=== PATIENT | male | born 1970 | race American Indian/Alaskan Native ===

== ENCOUNTER 2019-02-21 14:32 | Inpatient (IN) | payer MEDICARE ==
--- NOTE | 2019-02-21 15:18 | ED PDOC ---
HPI: Psych/Substance Abuse Time Seen by Provider: 02/21/19 14:45 Chief Complaint (Nursing): Psychiatric Evaluation Chief Complaint (Provider): suicidal ideation History Per: Patient History/Exam Limitations: no limitations Onset/Duration Of Symptoms: Days (1 week), Gradual, Persistent Current Symptoms Are (Timing): Still Present Associated Symptoms: Suicidal Thoughts, Suicidal Plan (" by police". Would try to get shot.), Other (hearing voices) Additional Complaint(s): Recently fiance . Currently homeless. Rode on bus from [place] and arrived last night. PMD None Past Medical History Reviewed: Historical Data, Nursing Documentation, Vital Signs Vital Signs: Last Vital Signs Temp 98.0 F 02/21/19 14:37 Pulse 88 02/21/19 14:37 Resp 16 02/21/19 14:37 BP 144/70 02/21/19 14:37 Pulse Ox 98 02/21/19 14:37 Primary Care Provider: FAMILY PROVIDER,NO - Medical History PMH: Anxiety, Asthma, Back Problems (chronic back pain, herniated discs (2 years [employer])), Bipolar Disorder, Depression Denies: Diabetes, Hepatitis, HIV, HTN, Chronic Kidney Disease, Seizures, Sexually Transmitted Disease - Surgical History Surgical History: Hernia Repair - Family History Family History: States: Unknown Family Hx - Living Arrangements Living Arrangements: Other (Undomiciled) - Social History Current smoker - smoking cessation education provided: Yes Alcohol: None Drugs: Denies - Home Medications Home Medications: Ambulatory Orders Medication Instructions Recorded [place] Carbonate [[place] 02/21/19 Carbonate 300MG] QUEtiapine [SEROquel] 02/21/19 - Allergies Allergies/Adverse Reactions: Allergies Allergy/AdvReac Type Severity Reaction Status Date / Time No Known Allergies Allergy Verified 02/21/19 14:37 Review of Systems ROS Statement: Except As Marked, All Systems Reviewed And Found Negative (and as per HPI) Constitutional: Positive for: Weakness Psych: Positive for: Anxiety, Depression, Psychosis, Suicidal ideation Physical Exam - Reviewed Nursing Documentation Reviewed: Yes Vital Signs Reviewed: Yes - Physical Exam Appears: Positive for: Non-toxic, No Acute Distress (but tired appearing) Head Exam: Positive for: ATRAUMATIC, NORMOCEPHALIC Skin: Positive for: Warm, Dry Eye Exam: Positive for: EOMI, PERRL Neck: Positive for: Painless ROM, Supple Cardiovascular/Chest: Positive for: Regular Rate, Rhythm. Negative for: Murmur Respiratory: Positive for: Normal Breath Sounds. Negative for: Respiratory Distress Gastrointestinal/Abdominal: Negative for: Distended Back: Negative for: Decreased ROM Extremity: Positive for: Normal ROM. Negative for: Deformity Neurological/Psych: Positive for: Awake, Alert, Oriented, Mood/Affect (depressed mood and affect). Negative for: Motor/Sensory Deficits - Laboratory Results Result Diagrams: 02/21/19 17:22 02/21/19 17:22 - ECG ECG: Positive for: Interpreted By Me ECG Rhythm: Positive for: Sinus Rhythm, Nonspecific Changes O2 Sat by Pulse Oximetry: 98 Pulse Ox Interpretation: Normal - Radiology X-Ray: Interpreted by Me X-Ray Interpretation: No Acute Disease - Progress ED Course And Treament: 1814 Evaluated by KATHY Lazaro. Pt to be hospitalized for psychiatric stabilization. Medically stable for psych admission Disposition - Clinical Impression Clinical Impression: Bipolar disorder, Depression - Disposition Disposition Time: 18:00 Condition: STABLE - Pt Status Changed To: Hospital Disposition Of: Inpatient - Admit Certification Admit to Inpatient:: After my assessment, the patient will require hospitalization for at least two midnights. This is because of the severity of symptoms shown, intensity of services needed, and/or the medical risk in this patient being treated as an outpatient. - POA Present On Arrival: None
[2019-02-21 17:46] LABS: BASO % 0.6 % (0.0-2.0); EOS # 0.1 K/uL (0.0-0.7); EOS % 0.9 % (0.0-4.0); HEMOGLOBIN 13.9 g/dL (12.0-18.0); LYMPH # 1.3 K/uL (1.0-4.3); LYMPH % 20.4 % (20.0-40.0); MEAN CELL VOLUME 103.5 fl (80.0-94.0); MEAN CORPUSCULAR HEMOGLOBIN 34.5 pg (27.0-31.0); MEAN CORPUSCULAR HGB CONC 33.3 g/dL (33.0-37.0); MEAN PLATELET VOLUME 8.8 fl (7.2-11.7); MONO # 0.4 K/uL (0.0-0.8); MONO % 6.8 % (0.0-10.0); NEUT # 4.4 K/uL (1.8-7.0); NEUT % 71.3 % (50.0-75.0); RBC 4.02 Mil/uL (4.40-5.90); RED CELL DISTRIBUTION WIDTH 13.1 % (11.5-14.5); WHITE BLOOD COUNT 6.1 K/uL (4.8-10.8)
[2019-02-21 18:04] LABS: URINE BACTERIA RARE (<OCC); URINE BILIRUBIN NEGATIVE (NEGATIVE); URINE BLOOD NEGATIVE (NEGATIVE); URINE CLARITY CLEAR (Clear); URINE COLOR YELLOW (YELLOW); URINE GLUCOSE (UA) NEG (NEGATIVE); URINE LEUKOCYTE ESTERASE NEG Leu/uL (Negative); URINE PROTEIN NEGATIVE (NEGATIVE); URINE UROBILINOGEN 0.2-1.0 mg/dL (0.2-1.0)
[2019-02-21 18:07] LABS: ACETAMINOPHEN < 10.0 ug/ml (10.0-30.0); ALB/GLOB RATIO 1.4 (1.0-2.1); ALBUMIN 4.5 g/dL (3.5-5.0); ALT/SGPT 24 U/L (21-72); AST/SGOT 36 U/L (17-59); BLOOD UREA NITROGEN 15 mg/dl (9-20); CALCIUM 9.8 mg/dL (8.4-10.2); GFR NON-AFRICAN AMERICAN > 60; SALICYLATE < 1.0 mg/dl
[2019-02-21 18:21] LABS: BARBITURATES, UR NEGATIVE (NEGATIVE); BENZODIAZEPINES, UR NEGATIVE (NEGATIVE); OPIATES, UR NEGATIVE (NEGATIVE); PHENCYCLIDINE, UR NEGATIVE (NEGATIVE)
[2019-02-21 20:31] VITALS: O2SAT 100
[2019-02-21] MEDS ORDERED: DiphenhydrAMINE 50 mg/ml Inj IM PRN (22:26)
[2019-02-21] MEDS ORDERED: Magnesium Hydroxide Susp 30 ml UD PO PRN (22:26)
[2019-02-21] MEDS ORDERED: Alum-Mag Hydrox-Simethicone Susp (30 mL) PO PRN (22:26)
--- NOTE | 2019-02-21 22:37 | PCM.BM ---
Treatment Plan Problems - Problems identified on initial assessmt Delusions Date Initiated: 02/21/19 Time Initiated: 22:54 Assessment reference: NA Status: Active Hopelessness/Helplessness Date Initiated: 02/21/19 Time Initiated: 22:35 Assessment reference: NA Status: Active Medication nonadherence Date Initiated: 02/21/19 Time Initiated: 22:36 Assessment reference: NA Status: Active Treatment assets and liabiliti Patient Assests: cooperative, ADL independent, negotiates basic needs, cognitively intact Patient Liabilities: financial problems, poor support system, medical problems, other (homelessness) - Milieu Protocol Maintain good personal hygiene: daily Remind patient to perform daily oral care, every other day Encourage regular showers Conduct patient checks and document Observation sheet: Q15 minutes Maintain personal safety: every shift Educate patient to report safety concerns to staff, every shift Monitor environment for contraband/sharps Medication safety: Monitor for expected outcome, potential side effects: every shift, Assess barriers to learning: every shift, Assess readiness for medication education: every shift
--- NOTE | 2019-02-21 23:01 | PCM.BM ---
<XanderJacob P - Last Filed: 02/21/19 22:59> Treatment Plan Problems - Problems identified on initial assessmt Altered Sleep Patterns Assessment reference: NA Status: Active Guarded Behavior Date Initiated: 02/21/19 Time Initiated: 23:00 Assessment reference: NA Status: Active Delusions Date Initiated: 02/21/19 Time Initiated: 23:01 Assessment reference: NA <YuvalBina - Last Filed: 02/24/19 14:57> Treatment assets and liabiliti Patient Assests: adapts well, educated ( Pt. 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 ), resourceful, self- reliant, ADL independent, physically healthy, negotiates basic needs, good past tx response, financial stabiity (Pt. reports being disabled for several years and receiving SSI benefits.), cognitively intact Patient Liabilities: live alone (Pt. reports currently being homeless and identifies this as primary stressor.), poor support system (Pt. reports significant hx of traumatic losses, resulting in poor family/social supports. Pt. reports having a friend in [facility] and recently meeting a woman from [place] who has offered to house pt. upon discharge. ), medical problems (Pt. reports hx of hernia repair and chronic back pain. Please see H&P.), other (Pt. reported extensive family hx of mental illness and suicide attempts, reporting that biological parents and sister completed suicide by GSW.) Family Contact Family involvement: Famliy/SO not involved Family contact: Patient declines to allow family contact at present - Goals for Treatment Patient goals for treatment: Patient to continue stabilization on 3NP through medication management and group/supportive therapy to address sxs of depression as exhibited by poor energy/motivation, sleep disturbances, and eliminate SI. Patient to be encouraged to attend groups regularly to promote self-awareness, emotion regulation, and improve insight, compliance, coping skills and self- esteem. Patient to be provided with referral for appropriate level of aftercare to reduce risk of future hospitalizations and ensure safety in the community. Pt. identifying unstable housing as primary tx goal. With assistance from tx team and extensive psychoducation pt. was able to identify sxs of anxiety as primary problem for work. Discharge/Continuing Care - Education Needs Education Needs: Patient Medication, Patient Diagnosis/Disease Process, Patient Coping Skills, Patient Anger Management skills, Patient Community resources, Patient Aftercare Safety Plan - Discharge Discharge Criteria: Tolerates medication w/o severe side effects, Free of Suicidal thoughts, Free of agitation, Normal sleep pattern, Ability to care for self Discharge to:: [facility], Other (Pt. reports housing opportunity in [place] upon d/c.) - Treatment Team Participation Patient/Family/SO Statement: 02/23/19 15:47 Patient attended tx team this morning to discuss progress on 3NP and tx goals. Pt. presented as evasive and circumstantial. Pt. disorganized and tangential at times, requiring frequent redirection/refocusing to provide relevant collateral information. Pt. denied significant improvement in sxs since admission but reported feeling play today. Pt. reported feeling relief today after getting in touch with a woman (Trudy) who he met on a bus prior to admission and being told he will be allowed to reside with her in [place] upon discharge. Pt. reported ongoing passive SI without plan or intent and was able to contract for safety on 3NP. Staff availability emphasized. Pt. providing conflicting collateral regarding family losses, family relations, psychiatric hx. Pt. perseverating on housing and refusal to stay in a retirement if not allowed to stay with Trudy ([place]) or friend (resides in [facility]). Extensive psychoeducation regarding recommended medication changes provided. Pt. agreeable. Pt. superficially pleasant and superficially motivated for tx. Pt. informed that since he will be leaving the state upon discharge, aftercare cannot be secured by fiction and nonfiction writer prose. Grease Packer emphasized importance of pt. seeking appropriate outpatient mental health services upon relocation. Pt. expressed understanding of the above. Discussed with Family/SO: No Was Patient/Family/SO present at Treatment Team Meeting: Yes <Gino Roman - Last Filed: 02/25/19 12:21> Treatment Plan Problems - Problems identified on initial assessmt Altered Sleep Patterns Date Initiated: 02/21/19 Time Initiated: 22:35 Assessment reference: NA Status: Active Guarded Behavior Date Initiated: 02/21/19 Time Initiated: 23:00 Assessment reference: NA Status: Active Delusions Date Initiated: 02/21/19 Time Initiated: 23:01 Assessment reference: NA - Diagnosis (1) Bipolar disorder Status: Acute Interventions: 02/25/19 12:20 start lithium
--- NOTE | 2019-02-22 09:05 | CP.PCM.CON ---
<Efrem Juarez - Last Filed: 02/22/19 10:09> History of Present Illness - History of Present Illness History of Present Illness: Medicine Consult Note: HPI: 49 y/o male, with a PMHx of anxiety, depression, asthma, bipolar disorder presented to ED after 4 day long bus trip from [place]. Pt reports he is originally from [place] and came back after his fiance was killed by a drunk full service vending driver. He reports he has no will to live any longer and has exhausted all options at this point. He also reports he has no family left in the immediate area as his grandmother recently. Reports he wishes somebody would kill him (specifically police) but otherwise has no plan to do it himself. Feelings remain unchanged. No other complaints/concerns. Denies any homicidal ideation, visual/auditory hallucinations. ROS: 12 systems reviewed, negative unless otherwise mentioned in HPI PMHx: asthma, anxiety, depression, bipolar Meds: as per med rec ALL: NKDA Psurghx: left inguinal hernia repair Social: tobacco abuse, denies ETOH/drug abuse Familyhx: denies Past Patient History - Past Social History Smoking Status: Current Some Days Smoker Alcohol: None Drugs: Denies Home Situation {Lives}: Alone Domestic Violence: Negative - CARDIAC Hx Hypertension: No - PULMONARY Hx Asthma: Yes - NEUROLOGICAL Hx Seizures: No - HEENT Hx HEENT Problems: No - RENAL Hx Chronic Kidney Disease: No - ENDOCRINE/METABOLIC Hx Endocrine Disorders: No - HEMATOLOGICAL/ONCOLOGICAL Hx Human Immunodeficiency Virus (HIV): No - INTEGUMENTARY Hx Dermatological Problems: No - MUSCULOSKELETAL/RHEUMATOLOGICAL Hx Musculoskeletal Disorders: Yes (chronic back pain) Hx Herniated Disk: Yes (2 years ago) - GASTROINTESTINAL Hx Gastrointestinal Disorders: No - GENITOURINARY/GYNECOLOGICAL Hx Sexually Transmitted Disorders: No - PSYCHIATRIC Hx Substance Use: No - SURGICAL HISTORY Hx Surgeries: No - ANESTHESIA Hx Anesthesia: Yes Meds Allergies/Adverse Reactions: Allergies Allergy/AdvReac Type Severity Reaction Status Date / Time No Known Allergies Allergy Verified 02/21/19 14:37 - Medications Medications: Current Medications Acetaminophen (Tylenol 325mg Tab) 650 mg PO Q4 PRN PRN Reason: pain level 4-7 Al Hydrox/Mg Hydrox/Simethicone (Maalox Plus 30 Ml) 30 ml PO Q4 PRN PRN Reason: Dyspepsia Diphenhydramine HCl (Benadryl) 50 mg IM Q6 PRN PRN Reason: Extrapyramidal S/S Unable PO Diphenhydramine HCl (Benadryl) 50 mg PO Q6 PRN PRN Reason: Extrapyramidal Symptoms Diphenhydramine HCl (Benadryl) 50 mg PO HS PRN PRN Reason: Sleep Haloperidol (Haldol) 5 mg PO Q4 PRN PRN Reason: Agitation Haloperidol Lactate (Haldol) 5 mg IM Q4 PRN PRN Reason: Agitation, Unable to Take PO Lorazepam (Ativan) 2 mg IM Q8H PRN PRN Reason: Anxiety/Agitation,Unable PO Lorazepam (Ativan) 1 mg PO Q8H PRN PRN Reason: Anxiety/Agitation Magnesium Hydroxide (Milk Of Magnesia) 30 ml PO HS PRN PRN Reason: Constipation Physical Exam - Constitutional Appears: Well, Non-toxic, No Acute Distress - Head Exam Head Exam: ATRAUMATIC, NORMOCEPHALIC - Eye Exam Eye Exam: EOMI, PERRL - ENT Exam ENT Exam: Mucous Membranes Moist Additional comments: poor dentition, severe halitosis - Respiratory Exam Respiratory Exam: Clear to Auscultation Bilateral, NORMAL BREATHING PATTERN. absent: Rales, Rhonchi, Wheezes, Respiratory Distress - Cardiovascular Exam Cardiovascular Exam: REGULAR RHYTHM, RRR, +S1, +S2. absent: Tachycardia, Irregular Rhythm, JVD, Systolic Murmur - GI/Abdominal Exam GI & Abdominal Exam: Normal Bowel Sounds, Soft - Extremities Exam Extremities exam: Positive for: normal capillary refill, normal inspection, pedal pulses present. Negative for: calf tenderness, pedal edema, tenderness - Neurological Exam Neurological exam: Alert, CN II-XII Intact, Normal Gait, Oriented x3 - Psychiatric Exam Psychiatric exam: Depressed, Flat Affect, Suicidal Ideation Results - Vital Signs Recent Vital Signs: Last Vital Signs Temp 99.3 F 02/21/19 22:19 Pulse 74 02/21/19 23:14 Resp 17 02/21/19 23:14 BP 121/81 02/21/19 22:19 Pulse Ox 100 02/21/19 20:01 - Labs Result Diagrams: 02/21/19 17:22 02/21/19 17:22 Labs: Laboratory Results - last 24 hr 02/21/19 02/21/19 02/21/19 17:22 17:22 17:22 WBC 6.1 RBC 4.02 L Hgb 13.9 Hct 41.7 MCV 103.5 H MCH 34.5 H MCHC 33.3 RDW 13.1 Plt Count 191 D MPV 8.8 Neut % (Auto) 71.3 Lymph % (Auto) 20.4 [place] % (Auto) 6.8 Eos % (Auto) 0.9 Baso % (Auto) 0.6 Neut # (Auto) 4.4 Lymph # (Auto) 1.3 [place] # (Auto) 0.4 Eos # (Auto) 0.1 Baso # (Auto) 0.0 Sodium 136 Potassium 4.0 Chloride 104 Carbon Dioxide 25 Anion Gap 11 BUN 15 Creatinine 0.6 L Est GFR ( Amer) > 60 Est GFR (Non-Af Amer) > 60 Random Glucose 95 Calcium 9.8 Total Bilirubin 0.6 AST 36 ALT 24 Alkaline Phosphatase 50 Total Protein 7.7 Albumin 4.5 Globulin 3.2 Albumin/Globulin Ratio 1.4 Urine Color Urine Clarity Urine pH Ur Specific [place] Urine Protein Urine Glucose (UA) Urine Ketones Urine Blood Urine Nitrate Urine Bilirubin Urine Urobilinogen Ur Leukocyte Esterase Urine RBC (Auto) Urine Microscopic WBC Urine Bacteria Salicylates < 1.0 Urine Opiates Screen Urine Methadone Screen Acetaminophen < 10.0 L Ur Barbiturates Screen Ur Phencyclidine Scrn Ur Amphetamines Screen U Benzodiazepines Scrn [place] < 0.2 L U Oth Cocaine Metabols U Cannabinoids Screen Alcohol, Quantitative < 10 02/21/19 02/21/19 17:38 17:38 WBC RBC Hgb Hct MCV MCH MCHC RDW Plt Count MPV Neut % (Auto) Lymph % (Auto) [place] % (Auto) Eos % (Auto) Baso % (Auto) Neut # (Auto) Lymph # (Auto) [place] # (Auto) Eos # (Auto) Baso # (Auto) Sodium Potassium Chloride Carbon Dioxide Anion Gap BUN Creatinine Est GFR ( Amer) Est GFR (Non-Af Amer) Random Glucose Calcium Total Bilirubin AST ALT Alkaline Phosphatase Total Protein Albumin Globulin Albumin/Globulin Ratio Urine Color Yellow Urine Clarity Clear Urine pH 6.0 Ur Specific [place] 1.009 Urine Protein Negative Urine Glucose (UA) Neg Urine Ketones Negative Urine Blood Negative Urine Nitrate Negative Urine Bilirubin Negative Urine Urobilinogen 0.2-1.0 Ur Leukocyte Esterase Neg Urine RBC (Auto) 1 Urine Microscopic WBC 1 Urine Bacteria Rare Salicylates Urine Opiates Screen Negative Urine Methadone Screen Negative Acetaminophen Ur Barbiturates Screen Negative Ur Phencyclidine Scrn Negative Ur Amphetamines Screen Negative U Benzodiazepines Scrn Negative [place] U Oth Cocaine Metabols Negative U Cannabinoids Screen Negative Alcohol, Quantitative Assessment & Plan - Assessment and Plan (Free Text) Assessment: 49 y/o male with PMHx of anxiety, depression, bipolar disorder admitted to psych for suicidal ideation. Pt remains with depressed mood and unchanged suicidal tho ughts. He is afebrile and hemodynamically stable. Plan: c/w management as per psych team, will continue to follow pt as needed. <Stephen Gil - Last Filed: 02/22/19 12:02> Meds - Medications Medications: Current Medications Acetaminophen (Tylenol 325mg Tab) 650 mg PO Q4 PRN PRN Reason: pain level 4-7 Al Hydrox/Mg Hydrox/Simethicone (Maalox Plus 30 Ml) 30 ml PO Q4 PRN PRN Reason: Dyspepsia Diphenhydramine HCl (Benadryl) 50 mg IM Q6 PRN PRN Reason: Extrapyramidal S/S Unable PO Diphenhydramine HCl (Benadryl) 50 mg PO Q6 PRN PRN Reason: Extrapyramidal Symptoms Diphenhydramine HCl (Benadryl) 50 mg PO HS PRN PRN Reason: Sleep Haloperidol (Haldol) 5 mg PO Q4 PRN PRN Reason: Agitation Haloperidol Lactate (Haldol) 5 mg IM Q4 PRN PRN Reason: Agitation, Unable to Take PO [place] Carbonate ([place] Carbonate 300mg) 300 mg PO BID KYLE Lorazepam (Ativan) 2 mg IM Q8H PRN PRN Reason: Anxiety/Agitation,Unable PO Lorazepam (Ativan) 1 mg PO Q8H PRN PRN Reason: Anxiety/Agitation Magnesium Hydroxide (Milk Of Magnesia) 30 ml PO HS PRN PRN Reason: Constipation Quetiapine Fumarate (Seroquel) 100 mg PO HS KYLE Results - Vital Signs Recent Vital Signs: Last Vital Signs Temp 97.7 F 02/22/19 09:30 Pulse 82 02/22/19 09:30 Resp 18 02/22/19 09:30 BP 116/79 02/22/19 09:30 Pulse Ox 100 02/21/19 20:01 - Labs Result Diagrams: 02/21/19 17:22 02/21/19 17:22 Labs: Laboratory Results - last 24 hr 02/21/19 02/21/19 02/21/19 17:22 17:22 17:22 WBC 6.1 RBC 4.02 L Hgb 13.9 Hct 41.7 MCV 103.5 H MCH 34.5 H MCHC 33.3 RDW 13.1 Plt Count 191 D MPV 8.8 Neut % (Auto) 71.3 Lymph % (Auto) 20.4 [place] % (Auto) 6.8 Eos % (Auto) 0.9 Baso % (Auto) 0.6 Neut # (Auto) 4.4 Lymph # (Auto) 1.3 [place] # (Auto) 0.4 Eos # (Auto) 0.1 Baso # (Auto) 0.0 Sodium 136 Potassium 4.0 Chloride 104 Carbon Dioxide 25 Anion Gap 11 BUN 15 Creatinine 0.6 L Est GFR ( Amer) > 60 Est GFR (Non-Af Amer) > 60 Random Glucose 95 Calcium 9.8 Total Bilirubin 0.6 AST 36 ALT 24 Alkaline Phosphatase 50 Total Protein 7.7 Albumin 4.5 Globulin 3.2 Albumin/Globulin Ratio 1.4 Triglycerides Cholesterol LDL Cholesterol Direct HDL Cholesterol Thyroxine (T4) TSH 3rd Generation Urine Color Urine Clarity Urine pH Ur Specific [place] Urine Protein Urine Glucose (UA) Urine Ketones Urine Blood Urine Nitrate Urine Bilirubin Urine Urobilinogen Ur Leukocyte Esterase Urine RBC (Auto) Urine Microscopic WBC Urine Bacteria Salicylates < 1.0 Urine Opiates Screen Urine Methadone Screen Acetaminophen < 10.0 L Ur Barbiturates Screen Ur Phencyclidine Scrn Ur Amphetamines Screen U Benzodiazepines Scrn [place] < 0.2 L U Oth Cocaine Metabols U Cannabinoids Screen Alcohol, Quantitative < 10 02/21/19 02/21/19 02/22/19 17:38 17:38 08:20 WBC RBC Hgb Hct MCV MCH MCHC RDW Plt Count MPV Neut % (Auto) Lymph % (Auto) [place] % (Auto) Eos % (Auto) Baso % (Auto) Neut # (Auto) Lymph # (Auto) [place] # (Auto) Eos # (Auto) Baso # (Auto) Sodium Potassium Chloride Carbon Dioxide Anion Gap BUN Creatinine Est GFR ( Amer) Est GFR (Non-Af Amer) Random Glucose Calcium Total Bilirubin AST ALT Alkaline Phosphatase Total Protein Albumin Globulin Albumin/Globulin Ratio Triglycerides 55 Cholesterol 214 H LDL Cholesterol Direct 56 HDL Cholesterol 138 H Thyroxine (T4) 7.72 TSH 3rd Generation 1.52 Urine Color Yellow Urine Clarity Clear Urine pH 6.0 Ur Specific [place] 1.009 Urine Protein Negative Urine Glucose (UA) Neg Urine Ketones Negative Urine Blood Negative Urine Nitrate Negative Urine Bilirubin Negative Urine Urobilinogen 0.2-1.0 Ur Leukocyte Esterase Neg Urine RBC (Auto) 1 Urine Microscopic WBC 1 Urine Bacteria Rare Salicylates Urine Opiates Screen Negative Urine Methadone Screen Negative Acetaminophen Ur Barbiturates Screen Negative Ur Phencyclidine Scrn Negative Ur Amphetamines Screen Negative U Benzodiazepines Scrn Negative [place] U Oth Cocaine Metabols Negative U Cannabinoids Screen Negative Alcohol, Quantitative Attending/Attestation - Attestation I have personally seen and examined this patient.: Yes I have fully participated in the care of the patient.: Yes I have reviewed all pertinent clinical information: Yes Notes (Text): 02/22/19 12:02 Patient seen and examined with resident. Case discussed and agreed with assessment.
--- NOTE | 2019-02-22 09:34 | RAD ---
Date of service: 02/21/2019 HISTORY: admission COMPARISON: Chest radiographs 10/26/2015 TECHNIQUE: Chest PA and lateral views FINDINGS: LUNGS: No active pulmonary disease. PLEURA: No significant pleural effusion identified. No pneumothorax apparent. CARDIOVASCULAR: No aortic atherosclerotic calcification present. Normal cardiac size. No pulmonary vascular congestion. OSSEOUS STRUCTURES: No significant abnormalities. VISUALIZED UPPER ABDOMEN: Normal. OTHER FINDINGS: None. IMPRESSION: No interval acute cardiopulmonary disease appreciated.
--- NOTE | 2019-02-22 10:16 | CARD ---
APPROVED REPORT Date of service: 02/21/2019 EKG Measurement Heart [id number] <Conclusion> Normal sinus rhythm Possible Left atrial enlargement Nonspecific ST and T wave abnormality Abnormal ECG
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
--- NOTE | 2019-02-24 16:23 | PCM.PYCHPN ---
Psychiatric Progress Note - Psychiatric Progress Note Patient seen today, length of contact: pt evaluated discussed with team chart reviewed Patient Chief Complaint: pt reports is feeling a little less nervous, staff report that pt at times requires direction related unit rules/social rules of unit. pt is reportdly rx adherent. Problems Identified/Issues Discussed: alteration in mood alteration in coping Medical Problems: pt being followed by medical team- Diagnostic Results: per psychiatry, per medicine, per nursing , per group social worker DSM 5 Symptoms Update: some improvement lability in mood Medication Change: No Medical Record Reviewed: Yes Consults ordered or reviewed: pt being followed by medical teami Mental Status Examination - Cognitive Function Orientation: Person, Place, Situation Memory: Intact Attention: WNL Concentration: Poor Association: Loose Fund of Knowledge: Poor Decription of patient's judgement and insights: impaired - Mood Mood: Depressed, Anxious - Speech Speech: Slurred, Loud - Formal Thought Process Formal Thought Process: Loosening of associations, Circumstantial - Suicidal Ideation Suicidal Ideation: No - Homicidal Ideation Homicidal Ideation: No Goal/Treatment Plan - Goal/Treatment Plan Need for Continued Stay: Remain at risks for inpatient hospitalization, Discharge may exacerbated symptoms Progress Toward Problem(s) and Goals/Treatment Plan: inpt milieu obtain lithium level in am along with cmp check bun creatininej-medication can be adjusted according to level and clinical status judicious use of ibuprofen as pt is receiving lithium discharge planning in progress Estimated Date of D/C: 03/07/19 - Smoking Cessation Smoking Cessation Initiated: No Reason for not providing: pt defers
[2019-02-24 18:02] VITALS: RESP 18
[2019-02-25 09:10] VITALS: BP 110/71; PULSE 57; TEMP 98.6
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
== END 2019-02-25 14:31 | disposition home or self-care (01) | DRG 885 ==
LOC: H.ER 14:32 → H.ERHOLD 18:18 → H.PSYCH 22:21
PROVIDERS: ADMIT Psychiatry & Neurology Psychiatry; ATTEND Psychiatry & Neurology Psychiatry
PROC: GZHZZZZ Group Psychotherapy (ICD-10-PCS; principal; 2019-02-21)
PROC: GZ51ZZZ Individual Psychotherapy, Behavioral (ICD-10-PCS; 2019-02-21)
PROC: GZ56ZZZ Individual Psychotherapy, Supportive (ICD-10-PCS; 2019-02-21)
DX: F31.63 Bipolar disorder, current episode mixed, severe, without psychotic features (principal); R45.851 Suicidal ideations; J45.909 Unspecified asthma, uncomplicated; Z59.0 Homelessness; Z91.14 Patient's other noncompliance with medication regimen; F41.9 Anxiety disorder, unspecified; M54.9 Dorsalgia, unspecified; G89.29 Other chronic pain; F17.200 Nicotine dependence, unspecified, uncomplicated